=== PATIENT | male | born 1985 | race Caucasian/White ===

== ENCOUNTER 2020-11-01 20:34 | Emergency (ER) | payer OTHER ==
[2020-11-01 22:46] LABS: BASOPHIL 0.4 % (0-2); EOSINOPHIL 1.1 % (0-5); HCT 38.6 % (42.0-52.0); LYMPHOCYTE 5.7 % (15-48); MCH 29.9 pg (25.0-31.0); MCHC 33.7 g/dL (32.0-36.0); MCV 88.7 fL (78.0-100.0); MONOCYTE 7.8 % (0-12); MPV 9.3 fL (6.0-9.5); NEUTROPHIL 84.5 % (41-80); NRBC 0; PLT 225 K/uL (150-400); RBC 4.35 M/uL (4.70-6.00); RDW 13.6 % (11.5-14.0); WBC 22.2 K/uL (4.0-10.5)
[2020-11-01 23:04] LABS: ALBUMIN 3.8 g/dL (3.4-5.0); BILIRUBIN - TOTAL 0.3 mg/dL (0.2-1.0); BUN/CREAT RATIO (CALC) 19.4 RATIO; CREATININE 0.98 mg/dL (0.67-1.17); GLOBULIN (CALCULATION) 3.9 g/dL; POTASSIUM 3.9 mmol/L (3.5-5.1); TOTAL PROTEIN 7.7 g/dL (6.4-8.2)
[2020-11-02] MEDS ORDERED: IBUPROFEN800 MG PO (04:18)
[2020-11-02] MEDS ORDERED: CEPHALEXIN500 M1 PO (04:18)
[2020-11-02] MEDS ORDERED: BACTRIM DS TAB1 EACH PO (04:18)
[2020-11-02] MEDS ORDERED: PERCOCET 5-3251 EACH PO (04:18)
== END 2020-11-02 04:38 | disposition home or self-care (01) ==
LOC: FER 20:34
PROVIDERS: Nurse Practitioner Family
DX: L02.611 Cutaneous abscess of right foot (principal); L03.031 Cellulitis of right toe; F17.210 Nicotine dependence, cigarettes, uncomplicated
CPT/HCPCS: 36415; 80053; 83605; 85025; 87040; 96365; 96372; 96375; 96376; J0696; J1885; J2270; J2405; J7030